=== PATIENT | female | born 1985 | race Caucasian/White ===

== ENCOUNTER 2018-10-23 10:57 | Outpatient (CLI) | payer MEDICARE, MEDICAID ==
[2018-10-20 09:56] LABS: BASOPHILS 0.1 % (0-2); EOSINOPHILS 1.1 % (0-7); HEMATOCRIT 38.3 % (36.0-48.0); HEMOGLOBIN 12.9 g/dL (12-16); IMMATURE GRANULOCYTES 0.2 % (0-5); LYMPHOCYTES 21.6 % (15-50); MCH 29.7 pg (26.0-34.0); MCHC 33.7 g/dL (31.0-37.0); MEAN PLATELET VOLUME 10.3 fL (7.4-10.4); MONOCYTES 6.6 % (2-11); NEUTROPHILS 70.4 % (40-80); PLATELET COUNT 226 10x3/uL (130-400); RBC 4.35 10x6/uL (4.00-5.40); RDW 12.5 % (11.5-14.5); WBC 9.3 10x3/uL (4.8-10.8)
[2018-10-20 10:06] LABS: APTT 31.1 SECONDS (22.8-39.4); INR 1.02 (0.85-1.17); PROTIME 12.9 SECONDS (11.6-15.0)
[2018-10-20 10:23] LABS: CALC OSMOLALITY 281 mosm/kg (275-300); CALCIUM 9.4 mg/dL (8.5-10.1); CARBON DIOXIDE 28.7 mmol/L (21.0-32.0); CHLORIDE - SERUM 105 mmol/L (98-107); CREATININE - SERUM 0.9 mg/dL (0.6-1.3); GLUCOSE 98 mg/dL (74-106); POTASSIUM - SERUM 4.2 mmol/L (3.5-5.1); SODIUM 141 mmol/L (136-145); UREA NITROGEN 15 mg/dL (7-18); eGFR NON AFRICAN AMERICAN 75 mL/min (90-120)
[2018-10-20 10:46] VITALS: BP 133/86; BMI 36.6
--- NOTE | 2018-10-20 15:15 | NUR ---
1425 CASE IS CANCELLED DUE TO PT ATE A BANANA THIS MORNING AT 0830 AND TIVA COULD NOT BE DONE. TO BE RESCHEDULED FOR THIS FRIDAY. PT. IS CRYING, FAMILY NOTIFIED AND RETURNED TO ROOM. LEMON MEKORYUK SERVED TO PT. DC INSTS GIVEN TO BE NPO AFTER MIDNIGHT FRIDAY, TO REPORT TO ADMISSIONS FRIDAY AT 1030 FOR A 1300 PROCEDURE TIME. IV DC'D WITH CATH INTACT RELEASED AMB.
[~2018-10-23] VITALS: Ht 177.8 cm; Wt 115.9 kg
--- NOTE | ~2018-10-23 | HEMODYNAMI ---
PATIENT:ROXIE BO MEDICAL RECORD: [id number] : 81 LOCATION:HOMER ADMISSION DATE: 10/23/18 Generatedon:10/23/201814:26 Patient name: ROXIE BO Patient #: [id number] SSN: D OB: 1985 Date of study: 10/23/2018 Page: Of Hemodynamic Procedure Report Patient Data Patient Demographics Procedure consent was obtained First Name: ROXIE Gender: Female Last Name: BETZY : 1985 [facility] Initial: MARLYN Age: 33 year(s) Patient #: [id number] Race: Unknown Additional ID: [id number] Contact details Address: [address] [place] [address] [facility] State: [place] City: [place] Zip code: [address] Admission Admission Data Admission Date: 10/23/2018 Admission Time: 10:57 Procedure Procedure Types Cath Procedure Peripheral Cath Diagnostic Procedure Miscellaneous Procedure Description Procedure Date Procedure Date: 10/23/2018 Procedure Start Time: 14:05 Procedure Staff Name Function Donis Golden RT Monitor Roger Ta MD Performing Physician Ann Engel RN Nurse Mike Hilton CRNA Additional personnel Procedure Data Cath Procedure Fluoroscopy Diagnostic fluoroscopy Total fluoroscopy Time: 0.1 time: 0.1 min min Diagnostic fluoroscopy Total fluoroscopy dose: 1 dose: 1 mGy mGy Procedure Medications Medication Administration Route Dosage Lidocaine 1% added to field 20 Hemodynamics Rest Heart Rate: 66 (bpm) Snapshots Pre Cath Intra NCS Post Cath Vital Signs Time Heart Resp SPO2 etCO2 NIBP (mmHg) Rhythm Pain Sedation Rate (ipm) (%) (mmHg) Status Level (bpm) 14:00:56 75 43 99 45.6 127/78(107) NSR 0 (11) 10(A) , No pain 14:05:17 66 19 98 46.4 135/83(106) NSR 0 (11) 10(A) , No pain 14:09:41 79 19 90 0 131/79(111) NSR 0 (11) 10(A) , No pain 14:14:03 63 13 98 44.9 132/84(101) NSR 0 (11) 10(A) , No pain 14:18:27 65 12 98 45.6 134/81(106) NSR 0 (11) 10(A) , No pain 14:22:45 20.9 127/81(88) NSR 0 (11) 10(A) , No pain Medications Time Medication Route Dose Verified Delivered Reason Notes Effective ness by by 14:08:03 Lidocaine added 20ml Roger Duran for local 1% to vial Ta Keyon anesthetic field MD BAUER Procedure Log Time Note 13:48:56 Donis Chantel RT (R) (CV) sent for patient. Start room use. 13:49:00 Mike Hilton CRNA present and monitoring patient for TIVA. 13:49:12 Time tracking: Regular hours (M-F 7:00 - 5:00) 13:49:18 Plan of Care:Hemodynamics will remain stable., Cardiac rhythm will remain stable., Comfort level will be maintained., Respiratory function will remain adequate., Patient/ family verbilizes understanding of procedure., Procedure tolerated without complication., Recovers from procedure without complications.. 13:49:25 Patient received from Outpatients to IR Alert and oriented. Tansferred to table in Prone position. 13:49:26 Correct patient and procedure confirmed by team. 13:49:28 Signed procedure consent form obtained from patient. 13:49:29 ECG and BP/O2 sat monitors applied to patient. 13:49:31 Full Disclosure recording started 13:49:31 - 13:49:35 H&P Date Dictated: 10/23/2018 H&P Addendum completed by physician on day of procedure. (MUST COMPLETE FOR ALL OUTPATIENTS). 13:49:36 Pre-procedure instructions explained to patient. 13:49:36 Pre-op teaching completed and patient verbalized understanding. 13:49:38 Family in waiting room. 13:49:41 - 13:49:58 SEE ANESTHESIA NOTE FOR PRE PROCEDURE TIVA 13:50:05 Lumbar area was prepped with chlora-prep and draped in sterile fashion 13:59:24 Baseline sample Acquired. 13:59:24 Vital chart was started 14:00:02 Baseline sample Acquired. 14:00:04 Baseline sample Acquired. 14:00:09 Baseline sample Acquired. 14:00:16 Baseline sample Acquired. 14::19 Baseline sample Acquired. 14:: Baseline sample Acquired. 14:00:32 Baseline sample Acquired. 14:04:55 Physician arrived 14:04:56 --------ALL STOP TIME OUT------ 14:04:57 Final Timeout: patient, procedure, and site verified with staff and physician. All members of the team are in agreement. 14:05:00 Lumbar site verified by team. 14:05:04 Sedation plan: IV Moderate Sedation Medication:Versed, Fentanyl 14:05:14 Procedure started. 14:05:26 Local anesthetic to Lumbar area with Lidocaine 1% by Roger Ta MD.INITIAL ACCESS ONLY 14:05:36 SAFE-T PLUS MYELOGRAM TRAY opened to sterile field. 14:08:03 Lidocaine 1% 20ml vial added to field was administered by Roger Ta MD; for local anesthetic; 14:20:00 Procedure ended.(Physican Out) 14:24:30 Fluoroscopy time 00.10 minutes. 14:24:32 Fluoroscopy dose: 1 mGy 14:24:32 Flurop Dose total: 1 14:24:51 BANDAIDE APPLIED SIGHT STABLE 14:25:47 SEE ANESTHESIA NOTE FOR TIVA POST PROCEDURE 14:26:09 Report given to Outpatients. 14:26:23 Patient transfered to Outpatients with Stretcher. 14:26:54 Vital chart was stopped Device Usage Item Name Manufacture Quantity Catalog Hospital Part Current Minimal Lot# / Number Charge Number Stock Stock Serial# Code SAFE-T [employer] 1 [id number] PLUS MYELOGRAM TRAY Signature Audit [place] Stage Time Signature Unsigned Intra-Procedure 10/23/2018 Donis 2:26:51 PM Chantel RT (R) (CV) Signatures Monitor : Donis Signature : Chantel RT Date : Time : [place] [id number] [place] [address]
[2018-10-23 12:43] VITALS: BP 133/93; Ht 177.8 cm; Wt 115.9 kg
--- NOTE | 2018-10-23 16:35 | NUR ---
PATIENT AMBULATES TO BATHROOM WITHOUT PAIN OR DIZZINESS. RIGHT WRIST PIV DC'D WITH TIP INTACT. PATIENT DRESSING IN PERSONAL CLOTHING. DISCHARGE INSTRUCTIONS REVIEWED WITH PATIENT AND [id number]
--- NOTE | 2018-10-23 16:45 | NUR ---
DISCHARGED HOME VIA WHEELCHAIR TO PRIVATE VEHICLE WITH [id number]
[2018-10-23 17:03] LABS: APPEARANCE - CSF CLEAR; RBC - CSF 10 cmm (0-0)
[2018-10-23 17:41] LABS: GLUCOSE - CSF 66 MG/DL (40-75)
[2018-10-23 17:51] LABS: PROTEIN - CSF 29 MG/DL (12-60)
== END 2018-10-23 16:45 | disposition home or self-care (01) ==
LOC: D.SP 10:57
PROVIDERS: Nurse Practitioner Women's Health; Specialist
DX: G93.2 Benign intracranial hypertension (principal)